=== PATIENT | male | born 1965 | race Caucasian/White ===

== ENCOUNTER 2016-12-08 12:29 | Day surgery (SDC) | payer MEDICARE, MEDICAID ==
--- NOTE | 2016-12-08 06:30 | History and Physical Report ---
DATE: 12/08/2016. CHIEF COMPLAINT AND HISTORY OF CHIEF COMPLAINT: This is a patient with a history of intractable lumbar radiculitis. He completed a spinal cord stimulator trial with 75 to 90 percent pain control. Due to the failure of all therapies and the success of the trial, the patient presents for implantation of a permanent system. PAST MEDICAL HISTORY: Asthmatic bronchitis. PAST SURGICAL HISTORY: Shoulder surgery, elbow surgery, knee surgery, carpal tunnel release. MEDICATIONS ON ADMISSION: To be provided. ALLERGIES: None identified. SOCIAL HISTORY: Caffeine. FAMILY HISTORY: Thyroid disease, asthma, diabetes, coronary artery disease, hypertension, cancer. REVIEW OF SYSTEMS: The patient is appropriate and in no acute distress. The remainder of the systems review shows glasses, dentures, breathing difficulties , headaches, degenerative arthritis, depression, difficulty sleeping. PHYSICAL EXAMINATION: General: Height and weight are not known. Vital Signs: Not available. HEENT: Within normal limits. Lungs: Clear. Heart: Regular rate and rhythm. Abdomen: Nontender. Musculoskeletal: Examination of the musculoskeletal system shows the primary pain pattern to be in the low back with a bilateral lower extremity extension. Ambulation: No assistive device utilized. Neurologic: Cranial nerves are intact. IMPRESSION: INTRACTABLE LUMBAR RADICULITIS, ICD-10 CODE M54.16 AND M54.17. PLAN: The patient is here for implantation of a spinal cord stimulator. The potential risks, side effects, and complications have been carefully reviewed and discussed. These include nerve root injury, trauma to the spinal cord, dural puncture, and spinal headache. The procedure will be considered outpatient, although an overnight stay will be evaluated. He will have a lumbar support placed postoperatively to help maintain restrictions and promote wound healing by reducing the incidence of seroma formation through direct pressure on the sites. The brace will promote his activity levels while maintaining restrictions with respect to bend, lift, push, and pull. All other instructions were provided. RIGO ROWE D.O. Date & Time JOB NUMBER: [id number] cc: Dr. Samuel WAGGONER
[~2016-12-08 12:29] MED LIST: ACETAMINOPHEN 1,000 MG/100 ML BTL IV ONE; FAMOTIDINE 20MG TABLET PO ONE; LEVOFLOXACIN 500MG IVPB 500 MG/100 ML BAG IVPB ONE; MECLIZINE 25 MG TABLET PO ONE; METOCLOPRAMIDE 10 MG TABLET PO ONE
[2016-12-08] MEDS ORDERED: FLUMAZENIL 1MG/10ML VIAL IV ONE (14:00)
[2016-12-08] MEDS ORDERED: MIDAZOLAM HCL 2MG/2ML VIAL IV ONE (14:00)
[2016-12-08] MEDS ORDERED: FENTANYL PF 100MCG/2ML VIAL IV ONE (14:00)
[2016-12-08] MEDS ORDERED: LIDOCAINE 1% W/EPI 1:200,000 MPF 30ML SQ ONE (14:00)
[2016-12-08] MEDS ORDERED: LIDOCAINE 2% MDV (20MG/ML) 20ML VIAL IV ONE (14:00)
[2016-12-08] MEDS ORDERED: HYDROMORPHONE HCL 2 MG/ML VIAL IV ONE (14:00)
[2016-12-08] MEDS ORDERED: KETOROLAC 30 MG/ML VIAL IVP ONE (14:00)
[2016-12-08] MEDS ORDERED: PROPOFOL 10 MG/ML VIAL IV ONE (14:00)
[2016-12-08] MEDS ORDERED: BUPIVACAINE 0.5% W/EPI MPF 30 ML VIAL IVP ONE (14:00)
[2016-12-08] MEDS ORDERED: OXYCODONE/APAP 10MG-325MG TABLET PO PRN ×2 (16:25)
[2016-12-08] MEDS ORDERED: HYDROCODONE/APAP 7.5/325MG TABLET PO PRN ×2 (16:25)
[2016-12-08] MEDS ORDERED: METOCLOPRAMIDE 10 MG TABLET PO PRN (16:25)
[2016-12-08] MEDS ORDERED: DIPHENHYDRAMINE HCL IV 50 MG/ML VIAL IVP PRN ×2 (16:25)
[2016-12-08] MEDS ORDERED: ACETAMINOPHEN 325 MG TAB PO PRN ×2 (16:25)
[2016-12-08] MEDS ORDERED: HYDROMORPHONE HCL 1 MG/ML CPJ IM PRN (16:25)
[2016-12-08] MEDS ORDERED: TEMAZEPAM 15 MG CAPSULE PO PRN ×2 (16:25)
[2016-12-08] MEDS ORDERED: SENNOSIDES/DOCUSATE SODIUM UD CAPSULE PO PRN ×2 (16:25)
[2016-12-08] MEDS ORDERED: HYDROMORPHONE HCL 2 MG/ML VIAL IM PRN (16:25)
[2016-12-08] MEDS ORDERED: AL HYDROX/MAG HYDROX 30ML UD PO PRN (16:25)
[2016-12-08] MEDS ORDERED: METOCLOPRAMIDE HCL 10 MG/2 ML VIAL IVP PRN (16:25)
[2016-12-08] MEDS ORDERED: DIPHENHYDRAMINE HCL 25 MG CAPSULE PO PRN ×2 (16:25)
[2016-12-08] MEDS ORDERED: 0.9 % SODIUM CHLORIDE 10ML SYR IVP SCH (22:00)
--- NOTE | 2016-12-09 08:11 | Operative Note ---
DATE: 12/08/2016. PREOPERATIVE DIAGNOSIS: INTRACTABLE LUMBAR RADICULITIS. PROCEDURE: 1. Fluoroscopically guided epidural access, left T11-12. Placement of spinal cord stimulator lead 1, a [employer] Infinion 16 with 16 electrodes positioned left T6. Fluoroscopically guided epidural access, left T12-L1. Placement of spinal cord stimulator lead 2, a [employer] Infinion 16 with 16 electrodes positioned right T6. 3. Complex programming of lead 1 over 20 minutes followed by complex programming of lead 2 over 20 minutes. 4. Incision, subcutaneous dissection, and anchoring of lead 1 and lead 2 to supraspinous fascia using [employer] locking anchor. 5. Incision, subcutaneous dissection, and creation of subcutaneous pouch at left posterior gluteal margin for placement of generator identified as [employer] programmable rechargeable. 6. Tunneling between pouches and placement of external portions of lead 1 and lead 2 into generator pouch, each lead interfaced to generator. 7. Secure generator to posterior fascia with nonabsorbable suture. Placement of leads into their respective pouch. 8. Closure of both incisions with Vicryl for the fascia and running subcuticular Vicryl for the skin. Dermabond closure. 9. Complex programming of two stimulators, internal generator, recovery room 20 minutes. ANESTHESIA: Local sedation. ANESTHESIA PROVIDER: Shama Esposito CRNA. INDICATIONS: This patient presents with a history of an intractable lumbar radiculitis. Due to the failure of therapies and the success of the stimulator trial, he presents today for implantation of a permanent system. DESCRIPTION OF PROCEDURE: Intravenous lines, vital signs, monitoring, and intravenous sedation. Prepped and draped with sterile technique. Under imaging , the epidural interspaces on the left at T11-12 and 12-1 were both identified and marked and the skin was infiltrated using two separate epidural access needles with loss of resistance into the space. At 11-12 spinal cord stimulator lead 1, a [employer] Infinion 16 with 16 electrodes, was positioned at left T6. With the epidural access at 12-1, spinal stimulator lead 2, a [employer] Infinion 16 with 16 electrodes, was inserted and placed right of T6. Complex programming of lead 1 over 20 minutes. This was followed by complex programming of lead 2 over 20 minutes. This ultimately resulted in a pattern of stimulation across the back and into both legs. The patient indicated we were in all of the appropriate areas. He was given the option to implant, continue to program, or remove. He opted to implant. Questions were repeated with the same response. The skin above and below both needles was infiltrated. An incision was made and subcutaneous dissection was conducted to the supraspinous fascia. Both leads were then anchored to the supraspinous fascia once the needles were removed with a [employer] locking anchor. Antibiotic irrigation and Bovie for hemostasis. At the left posterior gluteal margin, a site picked by the patient for the generator, the skin was infiltrated. An incision was made and subcutaneous dissection was conducted to form a pouch of suitable size and depth for the generator, a [employer] programmable rechargeable. A tunneling tool was then used to carry both leads into the generator pouch, and each lead was interfaced to the generator. Antibiotic irrigation and Bovie for hemostasis. The generator was placed into the pouch and secured to the fascia with nonabsorbable suture. The leads were placed into their own pouch, and then both incisions were closed with Vicryl to the fascia and running subcuticular Vicryl to the skin. Dermabond closure approximated the edges of both wounds. He was transported to the recovery room stable, showing no side effects from the procedure or the sedation. When fully awake and alert, complex programming of the two leads by way of the internal generator performed over 20 minutes, re- establishing stimulation with pain control to all of the appropriate areas. He was monitored in the recovery area. At that point a lumbar brace was placed and the patient was instructed on its use. The brace will be worn to help maintain restrictions and prevent any mobility issues from causing migration of the leads. Lumbar support also will apply appropriate pressure to the incisional sites, helping to ensure no stromal formation with appropriate healing. Further instructions provided. DISCHARGE INSTRUCTIONS: 1. Sites to remain clean and dry, although the Dermabond will allowing showering in 24 hours. 2. The brace will be worn as instructed with all activities. 3. Antibiotics with Levaquin the antibiotic 500 mg once a day for 14 days will be taken. If not tolerated, contact the clinic. 4. Standard medications to be resumed. 5. All instructions were provided. Restrictions include limited bend, lift, push, and pull. Wear the brace. 6. He will be evaluated in five to seven days in the office for the incisional sites. The office will contact the patient at home. cc: Eron Rosenberg
--- NOTE | 2016-12-10 08:19 | RADIOLOGY REPORT ---
EXAM: THORACOLUMBAR SPINE, SINGLE VIEW HISTORY: POSTOP. TECHNIQUE: A single AP view of the thoracic and lumbar spine were obtained. Comparison: Intraoperative images from the same date. FINDINGS: There are two stimulating wires with the proximal tips projecting over the T6 level. Correlate with intraoperative findings. IMPRESSION: SINGLE AP IMAGE, ABOVE. JOB NUMBER: [id number] MTDD
== END 2016-12-08 19:00 | disposition home or self-care (01) ==
LOC: SUR 12:29 → MEDSURG 16:19 → SUR 19:00
PROVIDERS: ATTEND Pain Medicine Interventional Pain Medicine
DX: M54.16 Radiculopathy, lumbar region (principal); M54.17 Radiculopathy, lumbosacral region; I10 Essential (primary) hypertension; J45.909 Unspecified asthma, uncomplicated
CPT/HCPCS: 63685; 63650 ×2; 01936; 95972; 72020; J1885; J3010; J1170; J1956